=== PATIENT | female | born 1980 | race Caucasian/White ===

== ENCOUNTER → 2016-11-07 | Outpatient (CLI) | payer OTHER ==
--- NOTE | 2016-11-12 10:47 | EST ---
DATE OF SERVICE: 11/07/2016 AGE: 36Y SEX: F HT: 65 WT: 240 lbs. Protocol Ander: X Other: Stage: III Dur. of Exercise: 9:46 *Heart Rate Blood Pressure *Rest: 76 Rest: 185/105 * *Max. Achieved: 158 Maximum BP: 207/90 85% PMHR: 157 100% PMHR: 185 *METS: 10.1. INDICATIONS: Chest pain. MEDICATIONS: ( ) depression suggestive of ischemia was noted. Isolated PVCs are noted. FINAL IMPRESSION: 1. This exercise test is not suggestive of ischemia. 2. Patient's exercise tolerance is normal. 3. Isolated premature ventricular contractions are noted.
--- NOTE | 2016-12-04 09:37 | EST ---
DATE OF SERVICE: 11/07/2016 ADDENDUM: AGE: 36Y SEX: F HT: 65" WT: 240 lbs. Protocol Ander: Others: Stage: Dur. of Exercise: 9:46 minutes *Heart Rate Blood Pressure *Rest: 76 Rest: 186/105 * *Max. Achieved: 158 Maximum BP: 207/190 85% PMHR: 157 100% PMHR: 185 *METS: 10.1 INDICATIONS: Chest pain. MEDICATIONS: See list. This study was done on 11/07/[address] Paulette Israel, this is addendum dictation. Only under medications spelling mistake is corrected. ST segment depression suggestive of ischemia was noted on the baseline EKGs as well as PVCs noted. IMPRESSION: Exercise stress test is not suggestive of ischemia. Patient exercise tolerance is normal. Isolated premature ventricular contractions are noted. This is an addendum to note dictated by Dr. Paulette Israel.
== END | disposition home or self-care (01) ==
LOC: RADNMMAIN 10:28
PROVIDERS: ATTEND Family Medicine
DX: R07.9 Chest pain, unspecified (principal)
CPT/HCPCS: 93017

== ENCOUNTER 2019-07-11 09:55 | Inpatient (IN) | payer OTHER ==
[2019-07-05 12:45] VITALS: BMI 43.7
[2019-07-11] MEDS ORDERED: LACTATED RINGERS 1,000 ML IV ONE (10:07)
[2019-07-11] MEDS ORDERED: CITRIC ACID-SODIUM CITRATE 15 ML CUP PO ONE (10:07)
[2019-07-11 11:20] LABS: Basophils % (A) 0 %; Eosinophils # (A) 0.1 k/uL (0-0.7); Eosinophils % (A) 1 %; HCT 34.7 % (34.0-46.0); HGB 11.5 gm/dL (11.4-16.0); Lymphocytes # (A) 1.2 k/uL (1.0-4.8); Lymphocytes % (A) 11 %; MCH 28.4 pg (25.0-35.0); MCHC 33.1 g/dL (31.0-37.0); MCV 85.8 fL (80.0-100.0); Mean Platelet Volume 8.1; Monocytes # (A) 0.4 k/uL (0-1.0); Monocytes % (A) 4 %; Neutrophils # (A) 9.1 k/uL (1.3-7.7); Neutrophils % (A) 83 %; Platelet Count 272 k/uL (150-450); RBC 4.04 m/uL (3.80-5.40); WBC 10.9 k/uL (3.8-10.6)
--- NOTE | 2019-07-11 12:08 | P.HPOB ---
History of Present Illness H&P Date: 07/11/19 Chief Complaint: 39-2/7 weeks, previous section, undesired fertility The patient is a 38-year-old 4 para 10-1 admitted at 39-2/7 weeks as established by an 8 week ultrasound. She is admitted for repeat low transverse section with intraoperative bilateral tubal occlusion using Filshie clips. Her has been essentially uncomplicated though she does fall into the category of advanced maternal age and declined any testing for trisomy. Group B strep status is negative. On labor and delivery, all signs reassuring though her blood pressure has been slightly elevated. Labs for preeclampsia are pending at this time. Obstetrical history: 4 para 10-1 with 1 previous term section and 2 previous miscarriages. EDC of 07/16/2019 was established by an 8 week ultrasound. Laboratory workup demonstrates a blood type of O+ with a negative antibody screen. Rubella status is immune. The remainder of the laboratory workup was within normal limits. Early Glucola as well as second trimester Glucola were within normal limits. Group B strep status is negative. Gynecologic history: Unremarkable with no history of any infections to include STDs. Review of Systems Review of systems is confined to history of present illness. Past Medical History Past Medical History: GERD/Reflux, Thyroid Disorder History of Any Multi-Drug Resistant Organisms: None Reported Past Surgical History: Section Additional Past Surgical History / Comment(s): THYROIDECTOMY. SWEAT GLANDS REMOVED X 2 Past Anesthesia/Blood Transfusion Reactions: Postoperative Nausea & Vomiting (PONV) Past Psychological History: No Psychological Hx Reported Smoking Status: Never smoker Past Alcohol Use History: None Reported Past Drug Use History: None Reported - Past Family History Mother Family Medical History: Cancer Medications and Allergies Home Medications Medication Instructions Recorded Confirmed Type Levothyroxine Sodium [Synthroid] 200 mcg PO DAILY 07/05/19 07/11/19 History Omeprazole 20 mg PO DAILY 07/05/19 07/11/19 History Pnv,Calcium 72/Iron/Folic Acid 1 each PO DAILY 07/05/19 07/11/19 History [ Plus Tablet] Allergies Allergy/AdvReac Type Severity Reaction Status Date / Time No Known Allergies Allergy Verified 07/11/19 10:06 Exam Vital Signs Temp Pulse Resp BP Pulse Ox 07/11/19 10:05 97.3 F L 85 16 172/97 99 Intake and Output 07/10/19 07/11/19 07/11/19 22:59 06:59 14:59 Other: Weight 115.666 kg In general, this is a well-developed, well-nourished white female in no acute distress. Her heart has a regular rhythm and rate without murmur. Her lungs are clear to auscultation bilaterally in all rivera. Her abdomen is nondistended, has normal active bowel sounds, soft, nontender, and without any palpable masses aside from uterine fundus. Her extremities are without any cyanosis, clubbing, or significant edema and are nontender to palpation bilaterally. Digital cervical examination is deferred. Results Result Diagrams: 07/11/19 10:50 Abnormal Lab Results - Last 24 Hours (Table) 07/11/19 Range/Units 10:50 WBC 10.9 H (3.8-10.6) k/uL Neutrophils # 9.1 H (1.3-7.7) k/uL Assessment and Plan (1) Term Current Visit: Yes Status: Acute Code(s): Z34.90 - ENCNTR FOR SUPRVSN OF NORMAL , UNSP, UNSP TRIMESTER SNOMED Code(s): 60234456 (2) Previous section Current Visit: Yes Status: Acute Code(s): Z98.891 - HISTORY OF UTERINE SCAR FROM PREVIOUS SURGERY SNOMED Code(s): 520103396 (3) Family planning Current Visit: Yes Status: Acute Code(s): Z30.09 - ENCOUNTER FOR OT GENERAL CNSL AND ADVICE ON CONTRACEPTION SNOMED Code(s): 687026285 Plan: The patient is admitted for repeat low transverse section to include intraoperative bilateral tubal occlusion with Filshie clips. The risks and complications of the procedures have been thoroughly discussed including the failure rate of tubal ligation as well as subsequent risk for ectopic and reversible nature. She has understood all this and agreed to proceed.
[2019-07-11] MEDS ORDERED: KETOROLAC 30 MG/ML 1 ML VIAL ONE (12:10)
[2019-07-11] MEDS ORDERED: OXYTOCIN 10 UNIT/ML 1 ML VIAL ONE (12:10)
[2019-07-11] MEDS ORDERED: MORPHINE SULFATE (PF) 0.3 MG/0.3 ML SYR ONE (12:10)
[2019-07-11] MEDS ORDERED: ONDANSETRON 4 MG/2 ML VIAL ONE (12:10)
[2019-07-11] MEDS ORDERED: NALBUPHINE 10 MG/ML (1 ML AMP) ONE (12:10)
[2019-07-11 12:18] LABS: Appearance,Urine Clear (Clear); Bilirubin,Urine Negative (Negative); Blood,Urine Trace (Negative); Color,Urine Yellow; Glucose,Urine (UA) Negative (Negative); Ketones,Urine 2+ (Negative); Leukocyte Esterase,Urine Negative (Negative); Mucus,Urine Rare /hpf; Nitrite,Urine Negative (Negative); PH, Urine 6.5 (5.0-8.0); Protein,Urine Trace (Negative); RBC,Urine 13 /hpf (0-5); Specific Gravity,Urine 1.015 (1.001-1.035); Squamous Epithelial Cell,Urine <1 /hpf (0-4); Urobilinogen,Urine <2.0 mg/dL (<2.0); WBC,Urine 1 /hpf (0-5)
[2019-07-11] MEDS ORDERED: ONDANSETRON 4 MG/2 ML VIAL IVP PRN (13:12)
[2019-07-11] MEDS ORDERED: NALBUPHINE 10 MG/ML (1 ML AMP) IV PRN (13:12)
[2019-07-11] MEDS ORDERED: NALOXONE 0.4 MG/ML 1 ML VIAL IV PRN (13:12)
[2019-07-11] MEDS ORDERED: HYDROmorphone 0.5 MG/0.5 ML SYRINGE IVP PRN (13:12)
[2019-07-11] MEDS ORDERED: diphenhydrAMINE 50 MG/ML 1 ML VIAL IVP PRN ×3 (13:12→13:13)
[2019-07-11] MEDS ORDERED: KETOROLAC 30 MG/ML 1 ML VIAL IVP PRN (13:12)
[2019-07-11] MEDS ORDERED: SIMETHICONE 80 MG CHEWABLE PO PRN (13:13)
[2019-07-11] MEDS ORDERED: ACETAMINOPHEN TAB 325 MG TAB PO PRN (13:13)
[2019-07-11] MEDS ORDERED: HYDROcodone/APAP 5-325MG 1 EACH TAB PO PRN (13:13)
[2019-07-11] MEDS ORDERED: LANOLIN CREAM 5 GM TUBE TOPICAL PRN (13:13)
[2019-07-11] MEDS ORDERED: diphenhydrAMINE 25 MG CAP PO PRN (13:13)
[2019-07-11] MEDS ORDERED: diphenhydrAMINE 50 MG CAP PO PRN (13:13)
[2019-07-11] MEDS ORDERED: ZOLPIDEM 5 MG TAB PO PRN (13:13)
[2019-07-11] MEDS ORDERED: METOCLOPRAMIDE 5 MG/ML 2 ML VIAL IVP PRN (13:13)
[2019-07-11] MEDS ORDERED: HYDROcodone/APAP 7.5-325MG 1 EACH TAB PO PRN (13:13)
[2019-07-11] MEDS ORDERED: OXYTOCIN 20 UNITS/1000 ML NS 1,000 ML IV SCH (13:15)
--- NOTE | 2019-07-11 13:23 | P.OP ---
Date of Procedure: 07/11/19 Preoperative Diagnosis: #1. 39-2/7 weeks, previous section #2. Undesired fertility #3. Advanced maternal age Postoperative Diagnosis: Same plus #4. Abdominal pelvic adhesive disease Procedure(s) Performed: #1. Repeat low transverse section #2. Lysis of adhesions #3. Intraoperative bilateral tubal occlusion with Filshie clips Anesthesia: spinal Surgeon: Ezra Singh Radio Station Engineer #1: Kira Purdy Estimated Blood Loss (ml): 600 IV fluids (ml): 1,000 Urine output (ml): 200 Pathology: none sent Condition: stable Disposition: floor Operative Findings: Preoperatively, the patient was counseled regarding the risks and complications of section as well as tubal ligation and agreed to proceed. Intraoperatively, there was a moderate amount of scarring at the fascia and rectus muscles which was lysed sharply. Intra-abdominally, there was some moderate omental adhesions to the right side of the uterus, primarily down above the blood vessels and likely at the site of a previous section which were lysed intraoperatively as well. She was delivered of a viable 7 lbs. 3 oz. baby boy with Apgars of 9 at 1 minute and 9 at 5 minutes in the occiput anterior position. There was a loose nuchal cord 1 which was reduced prior to delivery of the . The placenta was delivered manually, intact, and grossly normal with a grossly normal three-vessel cord which was noted to be quite long and with a single true knot present. The uterus, tubes, and ovaries were otherwise normal to inspection though there was some fibroids noted on the fundus of the uterus which were perhaps 1-2 cm in size an intramural in nature. Each tube was occluded with a Filshie clip approximately 3 cm from the cornu of the uterus in the isthmic portion of the tube. Description of Procedure: The patient was prepped and draped in usual fashion after spinal anesthesia was administered by the anesthesiologist. A Pfannenstiel incision was made through pre-existing scar and extended into the abdominal cavity with some difficulty at the level of the fascia and rectus muscle secondary to significant density of scarring. Ultimately, the abdomen was entered safely and there was noted to be some adhesions in the right lower portion of the uterus overlying the vessels and the lateral aspect of the previous section which were lysed sharply with Metzenbaum scissors. The bladder peritoneum was elevated, incised, and reflected distally. A 2 cm incision was made in the transverse plane of the lower uterine segment to enter the uterus at which time clear fluid was noted. The incision was extended in both directions using the bandage scissors. The head was encountered in the pelvis and delivered up and through the incision where the nose and mouth were thoroughly suctioned. A loose nuchal cord was noted and was reduced at this time. The infant was then delivered onto the field where the cord was doubly clamped, cut, and the infant passed resuscitative measures with weight and Apgars as noted above. A segment of cord was then doubly clamped, cut, and set aside should cord gases become necessary. There was noted to be a true knot in the segment. The placenta was delivered manually and intact as noted above. The uterus was exteriorized and the interior cavity of uterus swept of any remaining placental or membranous fr agments. The margins of the incision were grasped with Angel clamps. Initial attempts to close the uterus well outside the abdomen were difficult secondary to the patient's habitus leading to difficult angle for closure. The uterus was replaced within the abdominal cavity allowing a more effective closure. The uterine incision was closed with a single running locking stitch of 0 chromic catgut from margin to margin. One point of bleeding noted at the left angle of the incision was made hemostatic with a crjogf-je-rbxsd stitch of 0 chromic catgut. Any small points of bleeding from previous dissection were otherwise her made hemostatic with the Bovie. Once hemostasis had been achieved, the uterus was removed from the abdomen again to allow suction of the posterior cul-de-sac with a guard. The left fallopian tube was elevated and a Filshie clip placed across the entire isthmic portion and firmly affixed approximately 3 cm from the cornu. A similar operation was carried out on the right side without difficulty. The uterus was replaced within the abdominal cavity again and the gutters swept of any remaining blood, fluid, or clot. The incision was reexamined and found to be hemostatic. The parietal peritoneum was loosely reapproximated and layer of muscles examined and made hemostatic with the Bovie. The fascia was closed with 2 running stitches of 0 Vicryl proceeding from the lateral margins to the midpoint. The subcutaneous tissues were irrigated, made hemostatic with the Bovie, and reapproximated with a running stitch of 30 plain catgut. The skin was reapproximated with a running subcuticular stitch of 4-0 Vicryl from margin to margin followed by half-inch Steri-Strips placed with Mastisol. Estimated blood loss for the case was approximately 600 mL. There were no complications. All sponge, instrument, and needle counts were correct. The patient tolerated the procedure well and proceeded to the recovery room in stable condition. Both mother and are resting comfortably in recovery.
[2019-07-11 14:52] LABS: ALT 25 U/L (9-52); AST 18 U/L (14-36); African American GFR (CKD) >90 (>60 ml/min/1.73 sqM); Blood Urea Nitrogen 11 mg/dL (7-17); LDH 354 U/L (313-618); Non-African American GFR(CKD) >90 (>60 ml/min/1.73 sqM); Uric Acid 2.9 mg/dL (3.7-7.4)
[2019-07-11] MEDS: LACTATED RINGERS 1,000 ML IV SCH ×5 (14:59→21:32)
[2019-07-11] MEDS: SENNOSIDES-DOCUSATE SODIUM 1 EACH TAB PO SCH (21:33)
--- NOTE | 2019-07-11 22:38 | P.PN ---
Subjective Progress Note Date: 07/11/19 I was called by the nursing staff after they had noted significant amount of blood on the dressing. The dressing was then removed at which time it was apparent that the wound at the level of the skin was opened for approximately 4 cm and a moderate amount of clot noted on the wound. The patient reported she's been retching and vomiting for a good portion of the day and felt that at some time during that time she felt a "pop." Nausea has resolved at this time she is otherwise not uncomfortable. Objective - Vital Signs Vital signs: Vital Signs Temp 97.7 F 07/11/19 14:05 Pulse 76 07/11/19 15:20 Resp 18 07/11/19 18:00 BP 156/82 07/11/19 15:20 Pulse Ox 96 07/11/19 18:12 Intake & Output 07/11/19 07/11/19 07/12/19 06:59 18:59 06:59 Intake Total 100 Output Total 900 Balance -800 Weight 115.666 kg Intake: Oral 100 Output: Urine 200 Emesis 100 Estimated Blood Loss 600 Other: Voiding Method Indwelling Catheter - Exam Examination is limited to the wound on the abdomen. It demonstrates an area approximately 4-5 cm that is open at the right angle of the wound where likely the subcuticular stitch tore out allowing the wound to open. The stitch was apparent at the end of the opening. Sterile gauze was utilized to remove the clot over the top of the opening. The area around the wound did demonstrate s ome bruising and ecchymoses as well as some induration. It was judged that the best way to close the wound at this time would be to use tracy. The wound was reapproximated digitally allowing tracy to be placed from just past the area of the opening to the right angle of the incision. There was minimal ongoing oozing. Steri-Strips were reapplied to those that were removed secondary to blood causing them to be loose. Mastisol was used. Total blood loss on the dressing and from removal of the clot was perhaps 50-75 mL. The patient tolerated the closure well without any anesthetic. A pressure dressing was reapplied and the patient is to wear her binder for the time being. - Labs CBC & Chem 7: 07/11/19 10:50 07/11/19 10:50 Labs: Abnormal Lab Results - Last 24 Hours (Table) 07/11/19 07/11/19 07/11/19 Range/Units 10:50 10:50 11:40 WBC 10.9 H (3.8-10.6) k/uL Neutrophils # 9.1 H (1.3-7.7) k/uL Creatinine 0.50 L (0.52-1.04) mg/dL Uric Acid 2.9 L (3.7-7.4) mg/dL Urine Protein Trace H (Negative) Urine Ketones 2+ H (Negative) Urine Blood Trace H (Negative) Urine RBC 13 H (0-5) /hpf Urine Mucus Rare H (None) /hpf Assessment and Plan (1) Term Current Visit: Yes Status: Acute Code(s): Z34.90 - ENCNTR FOR SUPRVSN OF NORMAL , UNSP, UNSP TRIMESTER SNOMED Code(s): 31561482 (2) Previous section Current Visit: Yes Status: Acute Code(s): Z98.891 - HISTORY OF UTERINE SCAR FROM PREVIOUS SURGERY SNOMED Code(s): 280546570 (3) Family planning Current Visit: Yes Status: Acute Code(s): Z30.09 - ENCOUNTER FOR OTH GENERAL CNSL AND ADVICE ON CONTRACEPTION SNOMED Code(s): 339407451 (4) S/P section Current Visit: Yes Status: Acute Code(s): Z98.891 - HISTORY OF UTERINE SCAR FROM PREVIOUS SURGERY SNOMED Code(s): 834268198 Plan: Secondary closure of the portion of the incision that was open was carried out with regular surgical tracy. I will order Keflex 500 mg every 8 hours intravenously for at least 2 more doses. The tracy will likely remain in place for 7 days.
[2019-07-12] MEDS: LACTATED RINGERS 1,000 ML IV SCH ×2 (00:28→20:38)
[2019-07-12 05:39] LABS: Basophils % (A) 0 %; Eosinophils % (A) 0 %; HCT 29.4 % (34.0-46.0); Lymphocytes # (A) 1.1 k/uL (1.0-4.8); Lymphocytes % (A) 10 %; MCH 28.4 pg (25.0-35.0); MCHC 32.4 g/dL (31.0-37.0); MCV 87.6 fL (80.0-100.0); Mean Platelet Volume 7.8; Monocytes # (A) 0.8 k/uL (0-1.0); Monocytes % (A) 7 %; Neutrophils # (A) 8.9 k/uL (1.3-7.7); Neutrophils % (A) 82 %; Platelet Count 258 k/uL (150-450); RBC 3.35 m/uL (3.80-5.40); RDW 14.3 % (11.5-15.5); WBC 10.9 k/uL (3.8-10.6)
[2019-07-12 06:08] LABS: HGB 9.5 gm/dL (11.4-16.0)
[2019-07-12] MEDS: SENNOSIDES-DOCUSATE SODIUM 1 EACH TAB PO SCH ×2 (07:45→20:38)
--- NOTE | 2019-07-12 08:00 | P.PN ---
Progress Note - Text 07/12 643am 38-year-old female status post with spinal anesthetic. Patient had Duramorph injected along with the local anesthetic, she has a VAS of 0 this morning. She had complains of mild pruritus with known complains of nausea vomiting today
--- NOTE | 2019-07-12 10:09 | P.PNOBGPC ---
Subjective - Subjective Interval history: The patient reports minimal ongoing oozing from the right aspect of the incision which was previously open and has minimal ongoing pain. Patient reports: Reports appetite normal, Reports voiding normally, Reports pain well controlled, Reports ambulating normally : doing well Objective - Vital Signs Latest vital signs: Vital Signs Temp Pulse Resp BP Pulse Ox 07/12/19 08:00 97.5 F L 94 16 141/79 98 07/12/19 04:00 98.1 F 72 16 133/80 07/12/19 00:00 98.4 F 76 16 125/74 07/11/19 20:00 97.8 F 76 18 133/80 07/11/19 18:12 96 07/11/19 18:00 18 07/11/19 16:12 16 07/11/19 15:20 76 16 156/82 95 07/11/19 14:50 73 16 153/84 96 07/11/19 14:20 67 16 120/68 98 07/11/19 14:12 16 97 07/11/19 14:05 97.7 F 68 16 140/71 98 07/11/19 13:50 65 16 162/70 96 07/11/19 13:35 69 16 156/70 96 07/11/19 13:20 96.2 F L 72 16 125/83 96 07/11/19 13:12 16 96 Intake and Output 07/11/19 07/12/19 07/12/19 22:59 06:59 14:59 Intake Total 100 Output Total 400 750 Balance -300 -750 Intake: Oral 100 Output: Urine 300 750 Emesis 100 Other: Voiding Method Indwelling Catheter Indwelling Catheter # Voids 1 - Exam Extremities: Present: normal Abdomen: Present: normal appearance, soft. Absent: distention, tenderness Incision: Present: normal, intact, other (Minimal but ongoing oozing from the right aspect of the incision with moderate bruising or ecchymoses surrounding the area that was previously opened and reclosed last evening.) Uterus: Present: normal, firm (The uterine fundus is tonic and nontender around the umbilicus.) - Labs Labs: Abnormal Lab Results - Last 24 Hours (Table) 07/11/19 07/11/19 07/11/19 Range/Units 10:50 10:50 11:40 WBC 10.9 H (3.8-10.6) k/uL RBC (3.80-5.40) m/uL Hgb (11.4-16.0) gm/dL Hct (34.0-46.0) % Neutrophils # 9.1 H (1.3-7.7) k/uL Creatinine 0.50 L (0.52-1.04) mg/dL Uric Acid 2.9 L (3.7-7.4) mg/dL Urine Protein Trace H (Negative) Urine Ketones 2+ H (Negative) Urine Blood Trace H (Negative) Urine RBC 13 H (0-5) /hpf Urine Mucus Rare H (None) /hpf 07/12/19 Range/Units 05:11 WBC 10.9 H (3.8-10.6) k/uL RBC 3.35 L (3.80-5.40) m/uL Hgb 9.5 L D (11.4-16.0) gm/dL Hct 29.4 L (34.0-46.0) % Neutrophils # 8.9 H (1.3-7.7) k/uL Creatinine (0.52-1.04) mg/dL Uric Acid (3.7-7.4) mg/dL Urine Protein (Negative) Urine Ketones (Negative) Urine Blood (Negative) Urine RBC (0-5) /hpf Urine Mucus (None) /hpf Assessment and Plan (1) Term Current Visit: Yes Status: Acute Code(s): Z34.90 - ENCNTR FOR SUPRVSN OF NORMAL , UNSP, UNSP TRIMESTER SNOMED Code(s): 79675701 (2) Previous section Current Visit: Yes Status: Acute Code(s): Z98.891 - HISTORY OF UTERINE SCAR FROM PREVIOUS SURGERY SNOMED Code(s): 555449076 (3) Family planning Current Visit: Yes Status: Acute Code(s): Z30.09 - ENCOUNTER FOR OT GENERAL CNSL AND ADVICE ON CONTRACEPTION SNOMED Code(s): 805560940 (4) S/P section Current Visit: Yes Status: Acute Code(s): Z98.891 - HISTORY OF UTERINE SCAR FROM PREVIOUS SURGERY SNOMED Code(s): 348683596 Plan: Continue routine postoperative care. She has been given 2 doses of IV antibiotics after the wound opened. This will be discontinued today. Should there be no further issues, discharges likely tomorrow though [place] were remained in place for approximately 7 days total.
[2019-07-12] MEDS: LEVOTHYROXINE 100 MCG TAB PO SCH (11:14)
[2019-07-12] MEDS: IBUPROFEN 600 MG TAB PO PRN ×2 (12:17→17:58)
[2019-07-13] MEDS: IBUPROFEN 600 MG TAB PO PRN (03:23)
[2019-07-13] MEDS: LACTATED RINGERS 1,000 ML IV SCH (06:17)
[2019-07-13] MEDS: LEVOTHYROXINE 100 MCG TAB PO SCH (06:33)
[2019-07-13] MEDS: SENNOSIDES-DOCUSATE SODIUM 1 EACH TAB PO SCH (08:23)
[2019-07-13 08:39] VITALS: BP 161/89; PULSE 100; RESP 18; TEMP 97.8
--- NOTE | 2019-07-13 11:26 | P.DS ---
Providers Date of admission: 07/11/19 09:55 Expected date of discharge: 07/13/19 Attending physician: Ezra Singh Primary care physician: Stated None - Discharge Diagnosis(es) (1) Term Current Visit: Yes Status: Acute (2) Previous section Current Visit: Yes Status: Acute (3) Family planning Current Visit: Yes Status: Acute (4) S/P section Current Visit: Yes Status: Acute Hospital Course: The patient is a 38-year-old 4 para 1021 admitted at 39-2/7 weeks by an 8 week ultrasound. She is admitted for repeat low transverse section with tubal ligation having signed consent to the procedure and understanding its risks. Her was uncomplicated though she was in the category of advanced maternal age and declined any testing for trisomy. She was taken the operating room where she underwent repeat low transverse section and was delivered of a viable 7 lbs. 3 oz. baby boy with Apgars of 9 at 1 minute and 9 at 5 minutes. She then also underwent intraoperative bilateral tubal occlusion with Filshie clips. Both procedures were uncomplicated in nature. Her course was complicated by significant nausea and vomiting as well as retching following surgery for approximately 8 hours during which time she apparently retched hard enough that the right portion of her incision which had been closed with a subcuticular stitch opened for approximately 4 cm and began bleeding moderately. This was reclosed primarily using tracy after evacuating clot from the wound. The remainder of her postoperative course was entirely uncomplicated after the nausea resolved. She does have significant bruising from the midportion of the incision all the way along the right side and into the lateral portion of her abdomen following fascial planes. This has not been expanding. She was deemed stable for discharge on postoperative day #2 was discharged home to follow-up in the office in 1 week for staple removal and examination of the wound. She may need to follow-up in one week after that but this will be determined at the time of the first visit. She otherwise was to follow-up at 6 weeks routinely. Discharge instructions included calling for any significantly increased bleeding or foul-smelling lochia, significantly increased fever or abdominal pain, perineal complaints, breast complaints, further incisional complaints, or anything else that concerned her. She is additionally instructed to have nothing in the vagina for at least 6 weeks time to include intercourse and to abstain from any heavy lifting over the same period of time. She was last instructed to do no driving until off of all pain medications or 2 weeks' time, whichever came first. She understood her instructions and agrees to follow up as noted above. Discharge medications included only [id number] analgesic pain medications as well as continued vitamins as she has opted to breast-feed. Maternal blood type is O+ and rubella status is immune. Discharge hemoglobin and hematocrit were 9.5 and 29.4 respectively. As result, she was asked to take iron sulfate daily for approximately 1 month. Procedures: #1. Repeat low transverse section #2. Intraoperative bilateral tubal occlusion with Filshie clips #3. Secondary closure of part of the wound Patient Condition at Discharge: Stable Plan - Discharge Summary Discharge Rx Participant: Yes New Discharge Prescriptions: No Action Pnv,Calcium 72/Iron/Folic Acid [ Plus Tablet] 1 each PO DAILY Omeprazole 20 mg PO DAILY Levothyroxine Sodium [Synthroid] 200 mcg PO DAILY Discharge Medication List Levothyroxine Sodium [Synthroid] 200 mcg PO DAILY 07/05/19 [History] Omeprazole 20 mg PO DAILY 07/05/19 [History] Pnv,Calcium 72/Iron/Folic Acid [ Plus Tablet] 1 each PO DAILY 07/05/19 [History] Follow up Appointment(s)/Referral(s): Ezra Singh MD [STAFF PHYSICIAN] - 1 Week Discharge Disposition: HOME SELF-CARE
== END 2019-07-13 11:35 | disposition home or self-care (01) | DRG 785 ==
LOC: 4FBP 09:55
PROVIDERS: ADMIT Obstetrics & Gynecology; ATTEND Obstetrics & Gynecology
PROC: 10D00Z1 Extraction of Products of Conception, Low, Open Approach (ICD-10-PCS; principal; 2019-07-11 12:00)
PROC: 0UL70CZ Occlusion of Bilateral Fallopian Tubes with Extraluminal Device, Open Approach (ICD-10-PCS; principal; 2019-07-11 12:00)
DX: O34.211 Maternal care for low transverse scar from previous cesarean delivery (principal); D25.9 Leiomyoma of uterus, unspecified; O34.13 Maternal care for benign tumor of corpus uteri, third trimester; O69.81X0 Labor and delivery complicated by cord around neck, without compression, not applicable or unspecified; Z30.2 Encounter for sterilization; Z37.0 Single live birth; Z3A.39 39 weeks gestation of pregnancy; Z79.890 Hormone replacement therapy; E89.0 Postprocedural hypothyroidism; O99.284 Endocrine, nutritional and metabolic diseases complicating childbirth; K21.9 Gastro-esophageal reflux disease without esophagitis; O99.62 Diseases of the digestive system complicating childbirth; Z79.899 Other long term (current) drug therapy; O69.2XX0 Labor and delivery complicated by other cord entanglement, with compression, not applicable or unspecified; L29.9 Pruritus, unspecified
CPT/HCPCS: 81001; 82565; 83615; 84450; 84460; 84520; 84550; 85025; 85384; 86850; 86900; 86901

== ENCOUNTER 2019-10-17 | Emergency (ER) | payer OTHER | END 2019-10-17 15:55 | disposition home or self-care (01) | CPT/HCPCS: 36415; 80053; 82150; 83690; 85025; 81003; 81025; 76705; 99284; 96374; 96375; 96361 ×2; J2405; J1885 ==

== ENCOUNTER 2019-10-28 06:21 | Day surgery (SDC) | payer OTHER ==
[2019-10-26 11:54] VITALS: BMI 39.9
[~2019-10-28 06:21] MED LIST: DEXAMETHASONE SOD PHOSPHATE 10 MG/ML 1 ML VIAL IV ONE; HEPARIN SODIUM,PORCINE 5,000 UNIT/ML 1 ML VIAL SQ ONE; HYDROmorphone 0.5 MG/0.5 ML SYRINGE IVP PRN; LACTATED RINGERS 1,000 ML IV SCH; LIDOCAINE 1% (10MG/ML) FOR IV START INTRADERMA PRN; MIDAZOLAM 2 MG/2 ML VIAL IV PRN; ONDANSETRON 4 MG/2 ML VIAL IVP ONE; fentaNYL (PF) 50 MCG/ML 2 ML AMP IVP PRN
[2019-10-28] MEDS ORDERED: SCOPOLAMINE 1.5MG/72HR PATCH TRANSDERM ONE (07:20)
[2019-10-28] MEDS ORDERED: MIDAZOLAM 2 MG/2 ML VIAL ONE (08:04)
[2019-10-28] MEDS ORDERED: ROCURONIUM BROMIDE 10 MG/ML 5 ML VIAL IV ONE (08:04)
[2019-10-28] MEDS ORDERED: PROPOFOL 10 MG/ML 20 ML VIAL IV ONE (08:04)
[2019-10-28] MEDS ORDERED: KETOROLAC 30 MG/ML 1 ML VIAL ONE (08:04)
[2019-10-28] MEDS ORDERED: LIDOCAINE 1% INJ 10MG/ML (20 ML MDV) ONE (08:04)
[2019-10-28] MEDS ORDERED: SUCCINYLCHOLINE CHLORIDE 100 MG/5 ML SYR IV ONE (08:04)
[2019-10-28] MEDS ORDERED: fentaNYL (PF) 50 MCG/ML 2 ML AMP ONE (08:04)
[2019-10-28] MEDS ORDERED: HYDROmorphone (PF) 1 MG/ML ONE (08:04)
[2019-10-28] MEDS ORDERED: NEOSTIGMINE 1 MG/ML 10 ML VIAL ONE (08:04)
[2019-10-28] MEDS ORDERED: GLYCOPYRROLATE 0.2 MG/ML 2 ML VIAL ONE (08:04)
[2019-10-28] MEDS ORDERED: BUPIVACAINE (PF) 0.25% 30 ML VIAL SQ ONE (08:25)
[2019-10-28 09:31] VITALS: TEMP 97.8
[2019-10-28] MEDS ORDERED: LACTATED RINGERS 1,000 ML IV ONE (09:53)
[2019-10-28 10:03] VITALS: RESP 16
[2019-10-28] MEDS ORDERED: ONDANSETRON 4 MG/2 ML VIAL IVP ONE (10:25)
[2019-10-28 12:28] VITALS: BP 136/95; PULSE 60
--- NOTE | 2019-11-21 14:26 | P.OP ---
Date of Procedure: 10/28/19 Preoperative Diagnosis: Cholecystitis Postoperative Diagnosis: Cholecystitis Procedure(s) Performed: Laparoscopic cholecystectomy Anesthesia: JOAQUINA Surgeon: Kieran Abdul Estimated Blood Loss (ml): 10 Pathology: other (Gallbladder) Condition: stable Disposition: PACU Description of Procedure: The patient was placed on the operating table. The patient received a general endotracheal tube anesthesia. The patients abdomen was prepped and draped in the usual sterile fashion. Through an infraumbilical stab incision, the fascia of the anterior abdominal wall was grasped with a pair of Kochers and then the Veress needle was placed in the peritoneal cavity. Position of the Veress needle was confirmed with positive drop test. The abdomen was then insufflated. After adequate insufflation, the 10 mm trocar was placed in the peritoneal cavity. Following this the laparoscope was placed in the peritoneal cavity. The patient was placed in the head-up, right side up position and then a 5 mm trocar was placed in the right lateral and right subcostal position under direct visualization. A 8 mm trocar was placed in the epigastric position. The gallbladder was grasped in the fundus and infundibulum. Traction on the gallbladder was placed in the lateral and the cephalad positions. The triangle of Calot was visualized.. The cystic duct was bluntly dissected until the union of the cystic duct and common bile duct was seen. A critical view of safety was achieved. The cystic duct was then divided and sealed with the Harmonic scissors. A PDS Endoloop was then placed throughout the cystic duct stump. The cystic artery divided and sealed with the Harmonic scissors. The gallbladder was then removed from the liver bed using Harmonic scissors. The gallbladder was then extracted through the epigastric port site. Operative field was checked for any bleeding spots and Harmonic scissors was used to coagulate the liver bed. The abdomen was irrigated. The trocars were removed. The skin was closed using interrupted 3-0 Vicryl suture. Dermabond dressing were applied. The patient tolerated the procedure well.
== END 2019-10-28 12:35 | disposition home or self-care (01) ==
LOC: OR 06:21
PROVIDERS: ATTEND Surgery
DX: K80.10 Calculus of gallbladder with chronic cholecystitis without obstruction (principal); E07.9 Disorder of thyroid, unspecified; K21.9 Gastro-esophageal reflux disease without esophagitis; E89.0 Postprocedural hypothyroidism; Z79.890 Hormone replacement therapy; Z79.899 Other long term (current) drug therapy
CPT/HCPCS: 81025; 88304; 47562; J2250; J1644; J1100; J2710; J0690; J2405; J2001; J3010; J1885; J1170; J0330; J2704

== ENCOUNTER 2021-01-03 16:59 | Emergency (ER) | payer OTHER ==
[2021-01-03 17:05] VITALS: TEMP 97.8
[2021-01-03 17:47] LABS: Anisocytosis Slight; Basophils # (A) 0.1 k/uL (0-0.2); Basophils % (A) 1 %; Eosinophils # (A) 0.1 k/uL (0-0.7); Eosinophils % (A) 1 %; HCT 41.5 % (34.0-46.0); HGB 13.1 gm/dL (11.4-16.0); Hypochromasia Slight; Lymphocytes # (A) 2.2 k/uL (1.0-4.8); Lymphocytes % (A) 17 %; MCHC 31.5 g/dL (31.0-37.0); MCV 79.3 fL (80.0-100.0); Mean Platelet Volume 7.7; Microcytosis Slight; Monocytes # (A) 0.5 k/uL (0-1.0); Monocytes % (A) 4 %; Neutrophils # (A) 9.6 k/uL (1.3-7.7); Neutrophils % (A) 76 %; Platelet Count 310 k/uL (150-450); RBC 5.23 m/uL (3.80-5.40); RDW 16.5 % (11.5-15.5); WBC 12.7 k/uL (3.8-10.6)
[2021-01-03 17:58] LABS: ALT 28 U/L (4-34); AST 26 U/L (14-36); African American GFR (CKD) >90 (>60 ml/min/1.73 sqM); Albumin 4.5 g/dL (3.5-5.0); Alkaline Phosphatase 125 U/L (38-126); Anion Gap 7 mmol/L; Blood Urea Nitrogen 10 mg/dL (7-17); Calcium 9.4 mg/dL (8.4-10.2); Carbon Dioxide 26 mmol/L (22-30); Chloride 104 mmol/L (98-107); Glucose 93 mg/dL (74-99); Non-African American GFR(CKD) >90 (>60 ml/min/1.73 sqM); Potassium 3.4 mmol/L (3.5-5.1); Sodium 137 mmol/L (137-145); Total Bilirubin 0.3 mg/dL (0.2-1.3); Total Protein 7.5 g/dL (6.3-8.2)
[2021-01-03 18:02] LABS: D-Dimer 0.21 mg/L FEU (<0.60); INR 0.9 (<1.2); Partial Thromboplastin Time 23.9 sec (22.0-30.0); Prothrombin Time 9.7 sec (9.0-12.0)
--- NOTE | 2021-01-03 18:22 | XR ---
EXAMINATION: XR chest 2V DATE AND TIME: 01/03/2021 5:49 PM CLINICAL INDICATION: PHH; Chest Pain TECHNIQUE: PA and lateral views COMPARISON: None FINDINGS: The lungs demonstrate a small and rather subtle right lower lobe band of added opacity, consistent wi th partial airlessness, i.e., segmental atelectasis and/or early bronchopneumonia. The remainder of the lungs are clear and well-expanded. The pleural spaces are negative. The cardiac silhouette is not enlarged. The remainder of the mediastinal silhouette is unremarkable. The skeletal structures and soft tissues are negative for acute findings. IMPRESSION: Small right lung base band of added opacity as discussed; request clinical distinction.
--- NOTE | 2021-01-03 18:56 | ED ---
Chest Pain HPI - General Chief Complaint: Chest Pain Stated Complaint: Chest pain,Arm pain Time Seen by Provider: 01/03/21 17:07 Source: patient Mode of arrival: ambulatory Limitations: no limitations - History of Present Illness Initial Comments: Rosie is a 40yo F with no significant PMH who presents the ER today for evaluation of right-sided sharp chest pain. Patient reports that today while she was cleaning her daughter's bedroom she developed some sharp right-sided chest pain. This lasted for a short period time and resolved. She states that this happened around 11 AM. This afternoon when she went to scrap picker her daughter from school she then began having some aching pain in her shoulder and neck. She went to her primary care office where an EKG was obtained and she was advised to come to the ER for further evaluation of chest pain. Patient has no cardiac history, no family history of early cardiac disease. She is nondiabetic. No history of DVT or PE. She is not on any exogenous estrogen. No recent immobilization. He swelling. - Related Data Home Medications Medication Instructions Recorded Confirmed Levothyroxine Sodium [Synthroid] 150 mcg PO DAILY 01/03/21 01/03/21 Allergies Allergy/AdvReac Type Severity Reaction Status Date / Time No Known Allergies Allergy Verified 01/03/21 17:55 Review of Systems ROS Statement: Those systems with pertinent positive or pertinent negative responses have been documented in the HPI. ROS Other: All systems not noted in ROS Statement are negative. EKG Findings - EKG Comments: EKG Findings:: EKG was obtained due to complaint of chest pain EKG obtained 1711 rate is 85 rhythm is sinus there is a normal axis there are normal intervals, IN 176, he was 108, QTC 452 there are no acute ST elevations or depressions there is no evidence of ischemia, infarction or arrhythmia. Past Medical History Past Medical History: GERD/Reflux, Thyroid Disorder Additional Past Medical History / Comment(s): Hx thyroid nodules, surgical tx. Has gallstones. History of Any Multi-Drug Resistant Organisms: None Reported Past Surgical History: Section, Cholecystectomy Additional Past Surgical History / Comment(s): C-S x2. THYROIDECTOMY. SWEAT GLANDS REMOVED X 2 Past Anesthesia/Blood Transfusion Reactions: Postoperative Nausea & Vomiting (PONV) Past Psychological History: No Psychological Hx Reported Smoking Status: Never smoker Past Alcohol Use History: Occasional Past Drug Use History: None Reported - Past Family History Mother Family Medical History: Cancer Additional Family Medical History / Comment(s): thyroid cancer General Exam - General Exam Comments Initial Comments: Physical Exam GENERAL: Patient is well-developed and well-nourished. Patient is nontoxic and well- hydrated and is in no distress. HENT: Normocephalic, Atraumatic. EYES: PERRL, EOMI PULMONARY: Unlabored respirations. No audible rales rhonchi or wheezing was noted. CARDIOVASCULAR: There is a regular rate and rhythm without any murmurs gallops or rubs. ABDOMEN: Soft and nontender with normal bowel sounds. SKIN: Skin is clear with no lesions or rashes and otherwise unremarkable. : Deferred NEUROLOGIC: Patient is alert and oriented x3. Moving all extremities spontaneously MUSCULOSKELETAL: Normal extremities with adequate strength and full range of motion. No lower extremity swelling or edema. No calf tenderness. PSYCHIATRIC: Normal psychiatric evaluation. Limitations: no limitations Course Vital Signs 01/03/21 01/03/21 01/03/21 17:01 18:30 19:49 Temperature 97.8 F Pulse Rate 89 86 90 Respiratory 18 18 16 Rate Blood Pressure 170/132 178/105 145/114 O2 Sat by Pulse 99 100 99 Oximetry Chest Pain [facility] Patient was seen and evaluated history is obtained from the patient Outpatient EKG is sinus rhythm without acute findings Repeat EKG sinus rhythm without findings of some chest x-ray were unremarkable Patient's remained asymptomatic while in the emergency department Patient's pain was multiple hours ago her troponin remains negative she has no risk factors for cardiac disease at this time patient is comfortable with the plan for discharge home. 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 Return parameters were discussed patient was discharged home in stable condition. Disposition Clinical Impression: Atypical chest pain Disposition: HOME SELF-CARE Condition: Stable Instructions (If sedation given, give patient instructions): Chest Pain (ED) Is patient prescribed a controlled substance at d/c from ED?: No Referrals: Monisha Montoya DO [Primary Care Provider] - 1-2 days
[2021-01-03 19:49] VITALS: BP 145/114; PULSE 90; RESP 16
== END 2021-01-03 19:57 | disposition home or self-care (01) ==
LOC: EC 16:59
DX: R07.89 Other chest pain (principal); M54.2 Cervicalgia; M25.519 Pain in unspecified shoulder; K21.9 Gastro-esophageal reflux disease without esophagitis
CPT/HCPCS: 36415; 71046; 80053; 83735; 83880; 84484; 85025; 85379; 85610; 85730; 93005; 99285

== ENCOUNTER 2021-08-04 18:36 | Emergency (ER) | payer BC, OTHER ==
[2021-08-04 19:41] VITALS: BP 150/97; PULSE 77; RESP 20; TEMP 99
[2021-08-04] MEDS ORDERED: ACET/COD 300 MG/30 MG STARTER PACK 6 TAB BTL PO STA (20:05)
--- NOTE | 2021-08-04 20:06 | ED ---
ENT HPI - General Chief complaint: Dental/Oral Stated complaint: dental pain Time Seen by Provider: 08/04/21 19:45 Source: patient, RN notes reviewed Mode of arrival: ambulatory - History of Present Illness Initial comments: Patient is a 40-year-old female that presents to the emergency department complaining of left-sided mouth pain. She notes she does have a history of toothaches. She notes she thinks she might have a dental infection. She notes she came to the ER for evaluation and symptom control. She notes she did call primary care who prescribed her amoxicillin. She notes she took 2 doses but had increasing pain. Patient denied any other issues or complaints at she was otherwise well-appearing. She denied chest pain short of breath headache nausea vomiting diarrhea constipation fever fatigue chills. - Related Data Home Medications Medication Instructions Recorded Confirmed Levothyroxine Sodium [Synthroid] 150 mcg PO DAILY 01/03/21 01/03/21 Previous Rx's Medication Instructions Recorded Penicillin V Potassium [Pen Vee K] 500 mg PO QID #40 tablet 08/04/21 Penicillin V Potassium [Pen Vee K] 500 mg PO QID #40 tablet 08/04/21 Allergies Allergy/AdvReac Type Severity Reaction Status Date / Time No Known Allergies Allergy Verified 08/04/21 19:38 Review of Systems ROS Statement: Those systems with pertinent positive or pertinent negative responses have been documented in the HPI. ROS Other: All systems not noted in ROS Statement are negative. Past Medical History Past Medical History: GERD/Reflux, Thyroid Disorder Additional Past Medical History / Comment(s): Hx thyroid nodules, surgical tx. Has gallstones. History of Any Multi-Drug Resistant Organisms: None Reported Past Surgical History: Section, Cholecystectomy Additional Past Surgical History / Comment(s): C-S x2. THYROIDECTOMY. SWEAT GLANDS REMOVED X 2 Past Anesthesia/Blood Transfusion Reactions: Postoperative Nausea & Vomiting (PONV) Past Psychological History: No Psychological Hx Reported Smoking Status: Never smoker Past Alcohol Use History: Occasional Past Drug Use History: None Reported - Past Family History Mother Family Medical History: Cancer Additional Family Medical History / Comment(s): thyroid cancer General Exam General appearance: alert, in no apparent distress Head exam: Present: atraumatic, normocephalic, normal inspection Eye exam: Present: normal appearance, PERRL, EOMI. Absent: scleral icterus, conjunctival injection, periorbital swelling ENT exam: Present: normal exam, mucous membranes moist, other (Erythema to the upper left palate, no fluctuance, minimally tender.) Neck exam: Present: normal inspection Respiratory exam: Present: normal lung sounds bilaterally. Absent: respiratory distress, wheezes, rales, rhonchi, stridor Cardiovascular Exam: Present: regular rate, normal rhythm, normal heart sounds. Absent: systolic murmur, diastolic murmur, rubs, gallop, clicks Extremities exam: Present: normal inspection, full ROM, normal capillary refill. Absent: tenderness, pedal edema, joint swelling, calf tenderness Neurological exam: Present: alert, oriented X3 Psychiatric exam: Present: normal affect, normal mood Skin exam: Present: warm, dry, intact, normal color. Absent: rash Course Vital Signs 08/04/21 19:38 Temperature 99.0 F Pulse Rate 77 Respiratory 20 Rate Blood Pressure 150/97 O2 Sat by Pulse 98 Oximetry Medical Decision Making - Medical Decision Making 40-year-old female complaining of mouth pain possible dental infection. Upon inspection the upper left palate erythematous mildly tender but no fluctuance was noted. Patient is able to discharge home without the dentist with antibiotics and Tylenol 3 starter pack. Case discussed with Dr. Dos Santos Disposition Clinical Impression: Dental infection Disposition: HOME SELF-CARE Condition: Stable Instructions (If sedation given, give patient instructions): Toothache (ED) Additional Instructions: Please return to the Emergency Department if symptoms worsen or any other concerns. Follow-up with primary care in 1-2 days. Follow-up with dentist as soon as possible. Take antibiotics and tidal 3 as prescribed. Prescriptions: Penicillin V Potassium [Pen Vee K] 500 mg PO QID #40 tablet Penicillin V Potassium [Pen Vee K] 500 mg PO QID #40 tablet Is patient prescribed a controlled substance at d/c from ED?: No Referrals: Monisha Montoya DO [Primary Care Provider] - 1-2 days Time of Disposition: 20:06
== END 2021-08-04 20:30 | disposition home or self-care (01) ==
LOC: EC 18:36
DX: K04.7 Periapical abscess without sinus (principal); E07.9 Disorder of thyroid, unspecified; K21.9 Gastro-esophageal reflux disease without esophagitis; Z90.49 Acquired absence of other specified parts of digestive tract
CPT/HCPCS: 99282

== ENCOUNTER → 2022-10-21 | Outpatient (CLI) | payer BC ==
--- NOTE | 2022-10-22 18:12 | MM ---
Reason for Exam: Screening (asymptomatic). Baseline mammogram. Patient History: Menarche at age 14. First Full-Term at age 33. Late child-bearing (after 30). Premenopausal. Last menstrual period: 10/07/2022 Risk Values: Ariana 5 year model risk: 0.8%. NCI Lifetime model risk: 12.4%. Prior Study Comparison: Patient's first Mammogram. Tissue Density: There are scattered fibroglandular densities. Findings: Analyzed By CAD. Lateral axillary tail lymph node on the right. Benign round calcification posterior lower inner quadrant both breasts. No significant mass, suspicious microcalcification, or other discrete abnormality is seen. Overall Assessment: Benign, BI-RAD 2 Management: Screening Mammogram of both breasts in 1 year. 1. Patient should continue monthly self breast exams. 2. A clinical breast exam by your physician is recommended on an annual basis. 3. This exam should not preclude additional follow-up of suspicious palpable abnormalities. Electronically signed and approved by: Maria Del Carmen Ramirez M.D. Radiologist
== END | disposition home or self-care (01) ==
LOC: RADMAMWWP 15:19
PROVIDERS: ATTEND Family Medicine
DX: Z12.31 Encounter for screening mammogram for malignant neoplasm of breast (principal)
CPT/HCPCS: 77067